=== PATIENT | female | born 1985 | race Caucasian/White ===

== ENCOUNTER 2017-01-22 19:00 | Inpatient (IN) | payer OTHER ==
[~2017-01-22] VITALS: Ht 167.6 cm; Wt 64.4 kg
--- NOTE | ~2017-01-22 | PA ---
Unit #: [id number] #: [id number] Patient: DILEEP OLSON [id number] [facility] [address] [place] [address] [id number] MR#: [id number] NAME: DILEEP OLSON ROOM: P203 Age: 31 Sex: F Admission Date: 01/22/2017 : 1985 Date of Assessment: 01/23/2017 Attending Physician: Sampson Arguelles M.D. Admitting Physician: Sampson Arguelles M.D. Primary Care Physician: Primary Care Physician No PSYCHIATRIC ASSESSMENT IDENTIFYING INFORMATION The patient is a 31-year-old white female admitted to the [address] [place] [address] after she had presented to [facility] in a state of florid intoxication. CHIEF COMPLAINT None given INFORMANT The patient and chart. RELIABILITY Fair. HISTORY OF PRESENT ILLNESS The patient is a 31-year-old white female who is admitted to the [address] [place] [address] after she had presented to [facility] [place] in the state of intoxication. The patient was reporting positive suicidal ideation as well as visual hallucinations. The patient is currently homeless and has not been attending to ADLs. She is quite dirty and has extensive blistering and abrasions on her feet. The patient had last been hospitalized at this facility in January of 2016. At that time she had been diagnosed with mood disorder unspecified, cocaine use disorder, barbiturate use disorder, amphetamine use disorder, opioid use disorder and substance induced psychotic disorder. At the time of her last disorder she was discharged on no psychotropic medications. She was continued on previously prescribed home medications. When seen today the patient is noted to be in a state of dishevelment. She provides little in the way of useable history and is quite disorganized in her presentation. For more complete history of present illness please refer to previous dictated notes. PAST PSYCHIATRIC HISTORY Reviewed no changes PAST MEDICAL HISTORY Reviewed no changes. MEDICATIONS None at this time. ALLERGIES None reported. Unit #: [id number] #: [id number] Patient: DILEEP OLSON FAMILY HISTORY Reviewed no changes. SOCIAL HISTORY The patient is originally from [place], [place]. She has also lived in [facility] but has shuttled between the [place] and [facility] area. She is currently homeless. She reports alcohol use. She denies abuse of other psychiatric substances but as noted previously she has an extensive substance abuse history. She is a mother of four children none of whom she has custody. MENTAL STATUS EXAMINATION At this time reveals the patient to be a thin disheveled white female, appearing her stated age. She is in no apparent physical distress at the time of examination. She is awake, alert, and oriented in all spheres. Her mood is dysphoric. Her affect blunted. Speech is impoverished and slurred and occasionally tangential. Formal testing to memory and cognition area not possible secondary to patient's inability to comply. She is pleasant, less than optimally cooperative during interview. Her intelligence is judged to be in the low average. She is currently endorsing positive suicidal ideation. She denies homicidal ideation. She denies any psychotic symptoms. Her judgement and insight appear to be somewhat impaired. ASSETS AND LIABILITIES ASSETS: To be assessed. LIABILITIES: Lack of resources, homelessness, ongoing substance use. DIAGNOSTIC IMPRESSIOIN 1. Alcohol use disorder. 2. Mood disorder unspecified. 3. Psychotic disorder unspecified. 4. Cocaine use disorder by history. 5. Methamphetamine use disorder by history. 6. Cannabis use disorder by history. 7. Barbiturate abuse disorder by history. 8. Sedative hypnotic use disorder by history. 9. Hepatitis B & C per patient history. TREATMENT PLAN The patient remains hospitalized for safety and stabilization. At this point we will begin only p.r.n. Zydis for psychosis. The patient will participate in appropriate masterson and milieu activities with an estimate length of stay in the hospital in three to five days. Dictated by... Sampson Arguelles M.D. CB/becky TD: 01/23/2017 20:37 JOB #: [id number] Unit #: [id number] #: [id number] Patient: DILEEP OLSON PSYCHIATRIC ASSESSMENT Page 1 of 1 X Sampson Arguelles MD X PSYCHIATRIC ASSESSMENT
--- NOTE | ~2017-01-22 | PN ---
Unit #: [id number] #: [id number] Patient: DILEEP OLSON [id number] [facility] [address] [place] [address] [id number] MR#: [id number] NAME: DILEEP OLSON ROOM: P203 Age: 31 Sex: F Admission Date: 01/22/2017 : 1985 Attending Physician: Sampson Arguelles M.D. Admitting Physician: Sampson Arguelles M.D. Primary Care Physician: Primary Care Physician Cherelle ROMANO PROGRESS NOTES DATE 01/24/2017 DISCUSSION The patient is abed today. She is more appropriate in her interactions with this physician. I have spoken to her regarding her plans upon leaving the hospital and have spoken to her regarding the possibility of residential chemical dependence treatment. Dictated by... Sampson Arguelles M.D. CB/becky TD: 01/25/2017 03:02 JOB #: [id number] JUAN ANTONIO PROGRESS NOTES Page 1 of 1 X Sampson Arguelles MD PROGRESS NOTE
--- NOTE | ~2017-01-22 | CO ---
Unit #: [id number] #: [id number] Patient: DILEEP OLSON [id number] [place] [address] [id number] MR#: [id number] NAME: DILEEP OLSON ROOM: [facility] Age: 31 Sex: F Admission Date: 01/22/2017 : 1985 Attending Physician: Sampson Arguelles M.D. Primary Care Physician: Primary Care Physician No Consultation Date: 01/23/2017 CONSULTATION REPORT Medical consult was requested by Dr. Argeulles and completed on 01/23/2017. HISTORY OF PRESENT ILLNESS Upon skin assessment, staff noticed blisters on the top of the feet as well as abrasions. When asked about this she reports that she is unsure how these occurred. She does report to me that she has had many things happened to her feet that could have caused this and she is not sure which one. She is unable to elaborate. She has no other complaints. PHYSICAL EXAMINATION CARDIAC: Regular rate and rhythm. No murmurs, gallops, or rubs. RESPIRATORY: Clear to auscultation bilaterally. SKIN: Multiple abrasion to the dorsal surface of bilateral feet, please see photo in chart. ASSESSMENT AND PLAN Abrasions and blisters on bilateral feet, these do looked to partially be caused by sunburn. At this time, the patient has been refusing any assistance in all of her medications. Staff had tried to wash her feet and she is refusing. We will attempt to use Silvadene cream on abrasions and blisters, and she was instructed to keep a feet clean and dry. Please notify, if symptoms worsen or appear to require oral antibiotics. Dictated by... Robbie Benitez/nadja TD: 01/23/2017 16:54 JOB #: [id number] CONSULTATION REPORT Page 1 of 1 X MI STONER APRN X CONSULTATION REPORT
--- NOTE | ~2017-01-22 | DS ---
Unit #: [id number] #: [id number] Patient: DILEEP OLSON [id number] [facility] [address] [place] [address] [id number] MR#: [id number] NAME: DILEEP OLSON ROOM: [facility] Age: 31 Sex: F Admission Date: 01/22/2017 : 1985 Discharge Date: 01/25/2017 Attending Physician: Sampson Arguelles M.D. Primary Care Physician: Primary Care Physician No DISCHARGE SUMMARY REASON FOR ADMISSION The patient is a 31-year-old white female, admitted reporting positive suicidal ideation. HOSPITAL COURSE The patient was admitted to the [address] [place] [address] unit and placed on suicide precautions. Zydis 10 mg q.8 hours p.r.n. agitation was ordered. The patient did require one time dose of Geodon IM on 01/23/2017. 01/25/2017, the patient appeared to be at or near her psychiatric baseline. She exhibited no signs or symptoms of withdrawal. Denied any psychotic symptoms or suicidal ideation. She requested discharge and it was so ordered. FINAL DIAGNOSES Methamphetamine use disorder; cocaine use disorder; cannabis use disorder; opioid use disorder; alcohol use disorder; mood disorder, unspecified. DISPOSITION ON DISCHARGE The patient is discharged on the following medications: Silvadene cream 1% apply to blisters x5 days. FOLLOWUP The patient will follow up through the auspices of community mental health and chemical dependency treatment resources. PROGNOSIS Her prognosis is considered somewhat guarded given her lack of support and poor compliance with aftercare. Dictated by... Sampson Arguelles M.D. CB/nadja TD: 01/25/2017 15:40 JOB #: [id number] Unit #: [id number] #: [id number] Patient: DILEEP OLSON DISCHARGE SUMMARY Page 1 of 1 X Sampson Arguelles MD X DISCHARGE SUMMARY
--- NOTE | ~2017-01-22 | HP ---
Unit #: [id number] #: [id number] Patient: DILEEP OLSON [id number] [place] [address] [id number] I MR#: [id number] NAME: DILEEP OLSON ROOM: P203 Age: 31 Sex: F Admission Date: 01/22/2017 : 1985 Attending Physician: Sampson Arguelles M.D. Admitting Physician: Sampson Arguelles M.D. Primary Care Physician: Primary Care Physician No HISTORY AND PHYSICAL HISTORY OF PRESENT ILLNESS Dileep is a 31-year-old female admitted on 01/22/[address] [place] [address] for suicidal ideation, homicidal thoughts and detox from alcohol. She was uncooperative during the exam and a very poor historian. Therefore, information is taken from records and staff reports. PAST MEDICAL HISTORY Withdrawal seizures, hypothyroidism and history of kidney stones. PAST SURGICAL HISTORY Oral surgery and bilateral tubal ligation. SOCIAL HISTORY Smokes 1/2 pack of cigarettes daily, binge alcohol use and denies any illegal drug use. She is currently single and homeless. FAMILY HISTORY Noncontributory. REVIEW OF SYSTEMS CONSTITUTIONAL: No fever or chills. HEENT: Denies any sore throat, ear pain or runny nose. CARDIOVASCULAR: Denies chest pain, irregular heart rhythm or palpitations. CHEST: Denies shortness of breath or cough. No hemoptysis. GASTROINTESTINAL: Denies nausea, vomiting, diarrhea or chronic constipation. ENDOCRINE: Denies history of increased thirst or urination. No recent significant weight loss or gain. GENITOURINARY: Denies dysuria, frequency, or hematuria. SKIN: The patient complains of blisters on bilateral feet. HEMATOLOGIC: Denies history of increased bleeding or bruising. MUSCULOSKELETAL: Denies any hot, swollen joints. No generalized muscle pain. NEUROLOGIC: Denies problems with vision or speech. No frequent, severe headaches. No numbness, tingling or weakness in any extremities. Denies loss of bladder or bowel control. CURRENT MEDICATIONS None. ALLERGIES Unit #: [id number] #: [id number] Patient: DILEEP OLSON None. PHYSICAL EXAMINATION GENERAL: Alert, oriented, in no acute distress. VITAL SIGNS: Blood pressure 116/86, heart rate 114, respirations 18, temperature 98.0. HEIGHT: 5 foot 6 inches. WEIGHT: 142 pounds. SKIN: Blisters and abrasions on bilateral dorsal surfaces of feet. Please see medical consult. HEENT: Normocephalic. TMs not viewed. Oral and nasal passages clear. Conjunctivae clear. PERRLA. EOMs intact. NECK: Supple without lymphadenopathy or thyromegaly. HEART: Regular rate and rhythm without murmur. LUNGS: Clear. ABDOMEN: Soft, nontender, without masses or hepatosplenomegaly. : Not done. EXTREMITIES: No evidence of cyanosis, clubbing or edema. Moves all without focal deficit. NEUROLOGICAL: Grossly within normal limits. Cranial Nerves: II: Visual lundy are intact. III, IV AND : Extraocular movements are intact. Pupils are equal, round and reactive to light. V: Facial sensation is grossly normal. VII: Facial movements and expression are normal. VIII: Auditory acuity grossly intact. IX, X: Uvula is midline. Phonation is normal. XI: Patient shrugs shoulders and turns head normally. XII: Tongue protrudes in the midline. Sensory and Motor Function: Sensory and motor sensation is grossly normal. Motor: moves all extremities well. Coordination: Gait is normal. Deep Tendon Reflexes: Intact. IMPRESSION 1. Psychiatric admission. 2. Withdrawal seizures. 3. Hypothyroidism. 4. History of kidney stones. RECOMMENDATIONS Psychiatric, per psychiatrist. MEDICAL: I see no contraindications to participating in facility's activities. MEDICAL PROGNOSIS Good. MEDICAL CONDITION Stable. Dictated by... Robbie Benitez/becky Unit #: [id number] #: [id number] Patient: DILEEP OLSON TD: 01/24/2017 01:26 JOB #: [id number] HISTORY AND PHYSICAL Page 1 of 1 X MI STONER APRN X HISTORY AND PHYSICAL
[~2017-01-22 19:00] MED LIST: ADVAIR 250-501 EAC1 INH; K-DUR20 ME1 DOB; NORVASC10 MG PO; SPIRIVA RESPIMAT4 G1; THEOPHYLLIN PO
== END 2017-01-25 13:49 | disposition home or self-care (01) | DRG 897 ==
LOC: P2S 23:07
PROC: HZ2ZZZZ Detoxification Services for Substance Abuse Treatment (ICD-10-PCS; principal; 2017-01-23)
DX: F15.10 Other stimulant abuse, uncomplicated (principal); F11.10 Opioid abuse, uncomplicated; F39 Unspecified mood [affective] disorder; F14.10 Cocaine abuse, uncomplicated; F12.10 Cannabis abuse, uncomplicated; F10.10 Alcohol abuse, uncomplicated; E03.9 Hypothyroidism, unspecified; Z87.442 Personal history of urinary calculi; Z98.51 Tubal ligation status; F17.210 Nicotine dependence, cigarettes, uncomplicated